=== PATIENT | female | born 1940 | race Caucasian/White ===

== ENCOUNTER → 2017-11-15 | Outpatient (CLI) | payer OTHER ==
[~2017-11-15] MED LIST: LEVOTHYROXINE0.05 MG; LORTAB 7.5/5001 TA3; NOLVADEX20 MG; OS-CAL 500+D C1 EACH; SYNTHROID100 MCG
== END ==
LOC: M.RAD 10:15
DX: Z12.31 Encounter for screening mammogram for malignant neoplasm of breast (principal)

== ENCOUNTER → 2018-11-17 | Outpatient (CLI) | payer OTHER | LOC: M.RAD 09:56 | DX: Z12.31 Encounter for screening mammogram for malignant neoplasm of breast (principal) ==

== ENCOUNTER → 2019-11-20 | Outpatient (CLI) | payer OTHER | LOC: M.RAD 08:27 | PROVIDERS: ATTEND Internal Medicine | DX: Z12.31 Encounter for screening mammogram for malignant neoplasm of breast (principal) ==

== ENCOUNTER → 2020-08-25 | Outpatient (CLI) | payer OTHER | LOC: M.RAD 10:39 | PROVIDERS: ATTEND Internal Medicine | DX: R68.84 Jaw pain (principal) ==

== ENCOUNTER → 2020-10-10 | Outpatient (CLI) | payer OTHER | LOC: M.RAD 08:41 | PROVIDERS: ATTEND Internal Medicine | DX: J15.8 Pneumonia due to other specified bacteria (principal) ==

== ENCOUNTER → 2020-11-24 | Outpatient (CLI) | payer OTHER | LOC: M.RAD 09:46 | PROVIDERS: ATTEND Internal Medicine | DX: Z12.31 Encounter for screening mammogram for malignant neoplasm of breast (principal) ==